=== PATIENT | male | born 1945 | race Caucasian/White ===

== ENCOUNTER 2024-07-21 07:38 | Inpatient (IN) | payer MEDICARE, OTHER ==
[2024-07-21] MEDS ORDERED: VANCOMYCIN 1 GM VIAL ONE (09:46)
[2024-07-21] MEDS ORDERED: dexaMETHasone SOD PHOSPHATE 2 ML ONE (09:46)
[2024-07-21] MEDS ORDERED: LIDOCAINE 2%-EPI 1:100,000 30 ML VIAL ONE (09:46)
[2024-07-21] MEDS ORDERED: OXYMETAZOLINE HCL NASAL SPRAY 30 ML BOTTLE NS ONE (09:46)
[2024-07-21 12:20] VITALS: BP 132/74; TEMP 98.5; O2SAT 96
--- NOTE | 2024-07-21 12:25 | NUR ---
RN NOTES RECEIVED PATIENT FROM THE OR ACCOMPANIED BY 2 OR NURSES @1220. A/OX4. APPEARS COMFORTABLE. S/P MANDIBLE RECONSTRUCTION 07/21/2024. DENIES ANY SHORTNESS OF BREATH OR DIFFICULTY OF BREATHING. BREATHING EVENLY AND UNLABORED. TOLERATING ROOM AIR WELL AT 96%. VITAL SIGNS STABLE BP 132/74, HR 67, RR 16, TEMP 98.5. PATIENT HAS AN IV ACCESS ON HIS RIGHT ARM [id number]. PATENT INTACT AND FLUSHES WELL. NO S/SX OF INFIILTRATION NOTED. NO BLEEDING NOTED. HE SNEEZE A LITTLE BIT OF BLOOD IN TISSUE. OR NURSES AWARE AND CHARGE NURSE COREY TOO. PATIENT IS AMBULATORY. ABLE TO MAKE NEEDS KNOWN. PATIENT EXPRESSES NO NEEDS OF THIS MOMENT. SAFETY PRECAUTIONS IN PLACE. BED LOCKED AND IN LOWEST POSITION, SIDE RAILS UP X 2, CALL LIGHT AND TABLE WITHIN REACH. PLAN OF CARE ONGOING
[2024-07-21 13:20] VITALS: BP 135/79; TEMP 98.6; O2SAT 97
[2024-07-21] MEDS: IV NS 0.9% 1,000 ML IV PRN (13:44)
[2024-07-21] MEDS ORDERED: VERA80TA7 PO (13:47)
[2024-07-21] MEDS ORDERED: PITA2TAB PO (13:47)
[2024-07-21] MEDS ORDERED: METO-357 PO (13:47)
[2024-07-21] MEDS ORDERED: ASPI-1169 PO (13:47)
[2024-07-21] MEDS ORDERED: TERA10CA4 PO (13:47)
[2024-07-21] MEDS ORDERED: FINA5TAB4 PO (13:47)
[2024-07-21] MEDS ORDERED: ACETAMINOPHEN 325 MG TABLET PO PRN ×2 (14:00→15:00)
[2024-07-21] MEDS ORDERED: HYDROMORPHONE 1 MG/1 ML DISP.SYRIN IV PRN (14:00)
[2024-07-21] MEDS ORDERED: ONDANSETRON HCL/PF 4 MG/2 ML VIAL IV PRN (14:00)
[2024-07-21 14:20] VITALS: BP 137/81; TEMP 98.6; O2SAT 97
[2024-07-21 15:00] VITALS: BP 140/85; TEMP 98.1; O2SAT 98
[2024-07-21] MEDS ORDERED: Z GUARD REMEDY 4 OZ OINT TP PRN (15:00)
[2024-07-21] MEDS ORDERED: HYDROCODONE/APAP 10/325MG TABLET PO PRN (15:00)
[2024-07-21] MEDS ORDERED: MAG HYDROX/AL HYDROX/SIMETH 30 ML UDC PO PRN (15:00)
[2024-07-21] MEDS ORDERED: MAGNESIUM HYDROXIDE 30 ML UDC PO PRN (15:00)
[2024-07-21] MEDS ORDERED: ZOLPIDEM TARTRATE 5 MG TABLET PO PRN (15:00)
[2024-07-21] MEDS ORDERED: ONDANSETRON HCL/PF 4 MG/2 ML VIAL IVP PRN (15:00)
--- NOTE | 2024-07-21 15:35 | NUR ---
LONG LINES OPERATOR NOTES PATIENT WAS RECEIVED IN THE UNIT FOR OBSERVATION AFTER MANDIBULAR RECONSTRUCTION PROCEDURE. A/OX4. APPEARS COMFORTABLE. AMBULATORY WITH STABLE GAIT. NO BLEEDING REPORTED. ALL VITAL SIGNS TAKEN AND RECORDED, WNL. TOLERATED SOFT DIET ORDERED. KEPT PATIENT CLEAN, DRY AND COMFORTABLE. NAME ARMBAND AND IV ACCESS REMOVED. PATIENT DISCHARGED AND LEFT UNIT AT 1520. CHARGE NURSE COREY AND DOCTOR AWARE.
[2024-07-21] MEDS ORDERED: VERAPAMIL HCL 80 MG TABLET PO SCH (22:00)
[2024-07-22] MEDS ORDERED: ATORVASTATIN 10 MG TABLET PO SCH (09:00)
[2024-07-22] MEDS ORDERED: TERAZOSIN HCL 5 MG CAPSULE PO SCH (09:00)
[2024-07-22] MEDS ORDERED: FINASTERIDE (5 MG) 5 MG TABLET PO SCH (09:00)
[2024-07-22] MEDS ORDERED: ASPIRIN 81 MG TAB.CHEW PO SCH (09:00)
[2024-07-22] MEDS ORDERED: METOPROLOL SUCCINATE 50 MG TAB.SR.24H PO SCH (09:00)
== END 2024-07-21 18:14 | disposition home or self-care (01) | DRG 908 ==
LOC: DS 07:38 → MED 12:50
PROVIDERS: ADMIT Nurse Practitioner Acute Care; ATTEND Nurse Practitioner Acute Care
PROC: 0NSV0ZZ Reposition Left Mandible, Open Approach (ICD-10-PCS; principal; 2024-07-21)
PROC: 0NST0ZZ Reposition Right Mandible, Open Approach (ICD-10-PCS; 2024-07-21)
PROC: 0NBT0ZZ Excision of Right Mandible, Open Approach (ICD-10-PCS; 2024-07-21)
PROC: 0WB30ZX Excision of Oral Cavity and Throat, Open Approach, Diagnostic (ICD-10-PCS; 2024-07-21)
PROC: 0NUT07Z Supplement Right Mandible with Autologous Tissue Substitute, Open Approach (ICD-10-PCS; 2024-07-21)
PROC: 0NBV0ZX Excision of Left Mandible, Open Approach, Diagnostic (ICD-10-PCS; 2024-07-21)
DX: T86.831 Bone graft failure (principal); M86.69 Other chronic osteomyelitis, multiple sites; S02.609K Fracture of mandible, unspecified, subsequent encounter for fracture with nonunion; M87.9 Osteonecrosis, unspecified; Y92.009 Unspecified place in unspecified non-institutional (private) residence as the place of occurrence of the external cause; Y83.2 Surgical operation with anastomosis, bypass or graft as the cause of abnormal reaction of the patient, or of later complication, without mention of misadventure at the time of the procedure; D16.5 Benign neoplasm of lower jaw bone; X58.XXXD Exposure to other specified factors, subsequent encounter
CPT/HCPCS: 88305-TC; 88311-TC; A4223; C1713; G0378; J0690; J1100; J2704; J3370; J3490; J7030